=== PATIENT | female | born 1995 | race Caucasian/White ===

== ENCOUNTER 2017-10-05 06:23 | Day surgery (SDC) | payer BC ==
[~2017-10-05 06:23] MED LIST: Lactated Ringers 1,000 ML IV SCH; Lidocaine 1%/Sod Bicarbonate in NS 8.4% 1 ML Syringe IV PRN; Sodium Chloride 0.9% 10 ML Syringe FLUSH PRN
[2017-10-05] MEDS ORDERED: ceFAZolin 1 GM Vial ONE (06:54)
[2017-10-05] MEDS ORDERED: Ondansetron 4 MG/2 ML SDV ONE (06:54)
[2017-10-05] MEDS ORDERED: Lactated Ringers 1,000 ML ONE (06:54)
[2017-10-05] MEDS ORDERED: Propofol 200 MG/20 ML SDV ONE (06:55)
[2017-10-05] MEDS ORDERED: fentaNYL 250 MCG/5 ML SDV ONE (06:55)
[2017-10-05] MEDS ORDERED: Ketorolac 30 MG/ML SDV ONE (06:55)
[2017-10-05] MEDS ORDERED: Lidocaine 1% 4 ML ONE (06:55)
[2017-10-05] MEDS ORDERED: Dexamethasone 4 MG/ML 5 ML MDV ONE (06:55)
[2017-10-05] MEDS ORDERED: Midazolam 1 MG/ML 2 ML SDV ONE (06:55)
[2017-10-05] MEDS ORDERED: Bupivacaine 0.25% 10 ML SDV ONE (07:26)
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
[2017-10-05] MEDS ORDERED: HYDROmorphone 0.5 MG/0.5 ML Syringe IVPUSH PRN (08:55)
[2017-10-05] MEDS ORDERED: fentaNYL 100 MCG/2 ML SDV IVPUSH PRN (08:55)
[2017-10-05] MEDS ORDERED: Haloperidol Lactate 5 MG/ML SDV IVPUSH ONE (08:55)
--- NOTE | 2017-10-05 09:28 | PCM.POSTAN ---
POST ANESTHESIA ASSESSMENT - MENTAL STATUS Mental Status: Alert, Oriented - VITAL SIGNS Pulse Rate: 86 SaO2: 100 Resp Rate: 10 Blood Pressure: 128/79 Temperature: 37.2 C - RESPIRATORY Respiratory Status: Respiratory Rate WNL, Airway Patent, O2 Saturation Stable, Supplemental Oxygen - CARDIOVASCULAR CV Status: Pulse Rate WNL, Blood Pressure Stable - GASTROINTESTINAL GI Status: No Symptoms - PAIN Pain Score: 0 - POST OP HYDRATION Hydration Status: Adequate & Stable
[2017-10-05] MEDS ORDERED: Acetaminophen/HYDROcodone 325-5 MG Tab PO PRN (09:39)
[2017-10-05 10:39] VITALS: BP 123/72
--- NOTE | 2017-10-09 10:00 | PCM.OPNOTE ---
- General Post-Op/Procedure Note Date of Surgery/Procedure: 10/05/17 Operative Procedure(s): excision of right elbow mass Pre Op Diagnosis: right elbow mass Post-Op Diagnosis: Same Anesthesia Technique: General LMA, Local Primary Surgeon: Jorge Fofana Anesthesia Provider: Griselda Fernando Business Support Liaison: Tasneem Millan EBL in mLs: 5 Complications: None Condition: Good
--- NOTE | 2017-10-09 10:38 | OR ---
DATE OF OPERATION: 10/05/2017 SURGEON: Jorge Fofana MD OPERATION PERFORMED: Excision of right elbow mass. PREOPERATIVE DIAGNOSIS: Right elbow mass. POSTOPERATIVE DIAGNOSIS: Right elbow mass. ANESTHESIA: Technique: General LMA with local. ANESTHESIA PROVIDER: Griselda Ospina. INFORMATION SYSTEMS MANAGER: None. ESTIMATED BLOOD LOSS: Less than 5 mL. COMPLICATIONS: None. CONDITION: Stable. DESCRIPTION OF PROCEDURE: The patient was identified in the preop holding area. Proper site was marked and identified by the surgeon. The patient was taken back to the operative theater where after adequate anesthesia, the patient's right upper extremity was sterilely prepped and draped in the usual sterile fashion. OR time-out was performed. The patient received antibiotic with clindamycin. The right upper extremity was then exsanguinated. Tourniquet was insufflated to 225 mmHg. A curvilinear incision was made over the 2 masses noted at the right elbow. Blunt dissection was taken down to subcutaneous tissue. There was noted to be a nondescript fibrous-type mass at both spots. There were no surrounding inflammatory changes. There was no invasion of the fascia over the extensor compartment of the forearm. Otherwise, the rest of the tissue looked normal at this time. The subcutaneous masses were excised and sent for frozen section with pathology. At this time, adequate saline was irrigated through the wound. A 3-0 Vicryl was used subcutaneously and Monocryl was used for the skin. The patient had a sterile soft dressing applied and sent to PACU in stable condition. Note that the pathologist did call and there was a fibrous inflammatory reaction type nodule indicative of rheumatoid type nodule or nodular fasciitis. MMODAL /[id number]
== END 2017-10-05 10:30 | disposition home or self-care (01) ==
LOC: JD.SDS 06:23
PROVIDERS: ATTEND Orthopaedic Surgery
DX: R68.89 Other general symptoms and signs (principal); F32.9 Major depressive disorder, single episode, unspecified; F41.9 Anxiety disorder, unspecified; Z88.0 Allergy status to penicillin; Z88.8 Allergy status to other drugs, medicaments and biological substances; Z98.890 Other specified postprocedural states
CPT/HCPCS: 11406; 81025; 87641; A9270; J0690; J1100; J1885; J2250; J2405; J3010; J7120; 00400; J2704

== ENCOUNTER 2017-11-26 08:41 | Day surgery (SDC) | payer BC ==
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
[2017-11-26] MEDS ORDERED: Ondansetron 4 MG/2 ML SDV ONE (10:17)
[2017-11-26] MEDS ORDERED: fentaNYL 100 MCG/2 ML SDV ONE (10:18)
[2017-11-26] MEDS ORDERED: Midazolam 1 MG/ML 2 ML SDV ONE (10:18)
[2017-11-26] MEDS ORDERED: Bupivacaine 0.25% 30 ML SDV ONE (10:18)
[2017-11-26] MEDS ORDERED: Propofol 200 MG/20 ML SDV ONE ×2 (10:18→11:53)
[2017-11-26] MEDS ORDERED: Lidocaine 1% 4 ML ONE (10:18)
[2017-11-26] MEDS ORDERED: Sodium Bicarbonate 8.4% 50 MEQ/50 ML SDV ONE (10:21)
[2017-11-26] MEDS ORDERED: ceFAZolin 1 GM Vial ONE (10:21)
[2017-11-26] MEDS ORDERED: Lidocaine 0.5% 50 ML SDV ONE (10:21)
[2017-11-26] MEDS ORDERED: Lactated Ringers 1,000 ML ONE (11:34)
--- NOTE | 2017-11-26 12:35 | PCM.OPNOTE ---
- General Post-Op/Procedure Note Date of Surgery/Procedure: 11/26/17 Operative Procedure(s): exicion left wrist mass and left ring finger mass Pre Op Diagnosis: left wrist and ring finger masses Post-Op Diagnosis: Same Anesthesia Technique: MAC, Regional Block (dorothea) Primary Surgeon: Jorge Fofana Anesthesia Provider: Joss Santizo Filtration Supervisor: Tasneem Millan EBL in mLs: 5 Complications: None Condition: Good
[2017-11-26 12:50] VITALS: BP 110/63
--- NOTE | 2017-12-02 16:01 | OR ---
DATE OF OPERATION: 11/26/2017 SURGEON: Jorge Fofana MD OPERATION PERFORMED: Excision of left wrist mass and left ring finger mass. PREOPERATIVE DIAGNOSIS: Left wrist and left ring finger masses. POSTOPERATIVE DIAGNOSIS: Left wrist and left ring finger masses. ANESTHESIA: Regional Alicia block with MAC. ANESTHESIA PROVIDER: Joss Santizo CRNA. HOSPICE CONSULTANT: Tasneem Millan PA-C. ESTIMATED BLOOD LOSS: Less than 5 mL. COMPLICATIONS: None. CONDITION: Stable. DESCRIPTION OF PROCEDURE: The patient was identified in the preoperative holding area. Proper site was marked and identified by the surgeon. The patient was taken back to the operating theater, where after adequate anesthesia, the patient's left upper extremity underwent a Alicia block and it was then sterilely prepped and draped in the usual sterile fashion. OR-wide time-out was performed. The patient did receive 2 grams of IV antibiotics before the tourniquet and [place] block. At this time, attention was turned to the distal wrist mass. An incision was made over the FCR tendon sheath distally and then dissection was made just to the radial side of this for the subcutaneous mass that was noted. It was again noted to be a subcutaneous mass with no significant fluid. This was then excised in whole and was sent for pathologic permanent specimen. Once it was determined that we were able to get the entire mass subcutaneously, adequate saline was irrigated through the wound. At this time, an incision was made over the dorsolateral area near the PIP joint of the radial side of the left ring finger. Blunt dissection was taken into the subcutaneous region. At this time, there were 2 small cysts noted, and these were then excised with the use of a [place] blade making sure to protect the neurovascular bundles. At this time, they were both found to be excised. Adequate saline was irrigated through both incisions. 3-0 Vicryl was used subcutaneously and 4-0 nylon was used for closure of the skin. The patient had sterile soft dressing applied and was sent to the PACU in a stable condition. MMODAL /[id number]
--- NOTE | 2017-12-20 21:19 | OR ---
DATE OF OPERATION: 11/26/2017 SURGEON: Jorge Fofana MD ADDENDUM: Please note that left wrist mass was 2 cm x 2 cm and left ring finger mass was 4 mm x 4 mm. MMODAL /[id number]
== END 2017-11-26 13:09 | disposition home or self-care (01) ==
LOC: JD.SDS 08:41
PROVIDERS: ATTEND Orthopaedic Surgery
DX: L92.8 Other granulomatous disorders of the skin and subcutaneous tissue (principal); F41.8 Other specified anxiety disorders; Z88.0 Allergy status to penicillin; Z88.8 Allergy status to other drugs, medicaments and biological substances; Z79.899 Other long term (current) drug therapy
CPT/HCPCS: 25075; 26115; 81025; 87641; J0690; J2250; J2405; J3010; J3490; J7120; 00400; J2704